=== PATIENT | female | born 1970 | race Caucasian/White ===

== ENCOUNTER 2018-01-21 06:59 | Day surgery (SDC) | payer OTHER, MEDICAID, SELFPAY ==
[2018-01-19 13:46] LABS: Hematocrit 41.1 % (37-47); Hemoglobin 13.6 g/dl (12.0-15.0); Mean Corp Hgb Conc 33.1 g/gl (32-36); Mean Corpuscular Hgb 28.6 pg (27.0-32.0); Mean Corpuscular Volume 86.5 fL (81-99); Platelet Count 458 K/mm3 (150-450); RBC Distribution Width CV 13.9 % (11.6-14.6); RBC Distribution Width SD 43.6 fl (35.1-43.9); Red Blood Count 4.75 M/mm3 (4.2-5.4); White Blood Count 9.6 K/mm3 (4.4-11.0)
[2018-01-19 13:48] LABS: Scan Indicated on CBC? Y/N NO
[2018-01-19 14:03] LABS: Anion Gap 8 (5-15); BUN 11 mg/dL (7-18); BUN/Creat Ratio 21.4 RATIO (10-20); Calcium,Total 8.4 mg/dL (8.5-10.1); Chloride 106 mmol/L (98-107); Creatinine, Serum 0.52 mg/dL (0.55-1.02); EST Glomerular Filtration Rate 136 mL/min (>60); Est Glom Filt Rate - Afr Amer 165 mL/min (>60); Glucose 76 mg/dL (74-106); Sodium Level 141 mmol/L (136-145)
[2018-01-21] VITALS (7 sets, daily range): BP systolic 127–143; BP diastolic 70–99; PULSE 53–83; RESP 14–16; TEMP 36.3–36.5; O2SAT 99–100; BMI 26.8
[2018-01-21 07:25] LABS: Internal QC Validated? YES +Cl - CLEAR BKGD; Pregnancy, Urine Negative Negative
--- NOTE | 2018-01-21 09:22 | PCM.OPRPT ---
Report of Operation Date of Procedure: 01/21/18 Pre-Operative Diagnosis: Stress urinary incontinence Post-Operative Diagnosis: Same digestion operator: Kelvin ms3 Type of Anesthesia:: General Anesthesiologist: [place] Special Medications: None Specimen's removed: None Drains: Moreno Estimated Blood Loss (mL): 30 cc Fluids Replaced: 800 cc of LR Description of Procedure: Patient was taken to the operating room where she is prepped and draped in dorsal lithotomy position. A weighted speculum was placed in the vagina. Moreno catheter was placed and the balloon was inflated. The mid-urethra was identified and the vaginal epithelium under it was grasped with Elzbieta clamps and the vaginal epithelium was infiltrated with 1% Xylocaine with dilute epinephrine solution. An incision was made under the mid urethra and dissected laterally under the pubic ramus on both sides. The midline at the symphysis pubis was marked and then 2 cm on each side was marked with a marking pen. I hydrodissected behind the symphysis with a solution of 20 cc of 1% Xylocaine with epinephrine in 100 cc of injectable saline. 30 cc was used on both sides of the midline and the retropubic space. A catheter guide covered with a Moreno was used to displace the bladder to the patient's left side and the right trocar was placed with the TVT trocar. This was walked up behind the symphysis aiming towards the ipsilateral shoulder until I exited in the skin 2 cm to left of the midline directly cephalad to the pubic ramus. The bladder was taken to the opposite side and the left trocar was advanced in a similar fashion behind the symphysis pubis and out through the skin where it had been marked with a marker. A cystoscopy was then performed at this time. The bladder was intact. There were no perforations. Both ureteral jets were noted. Cystoscopy was ended and the Moreno placed to straight drain. The sling was secured up against the mid urethra using the Metzenbaum scissors as a spacer so as not to impinge upon the urethra. Mesh was lying flat against the mid urethra and no buttonholing of the vagina in either vaginal fornix was noted.The excess mesh was trimmed at the suprapubic incisions and those incisions were closed with skin glue. The vaginal epithelium overlying the mesh was reapproximated with 2-0 Vicryl suture. Second indicating layer of the same suture was used. Vagina was packed with iodoform gauze after a vaginal sweep was completed by me. The entire procedure present was performed by me with assistance. Needle counts were correct and the patient was taken to the recovery room with her Moreno catheter in place. Grafts/Implants Used: TVT exact - Complications None - Admit VTE Documentation VTE Present on Admission: No VTE Mechan Device Prophylaxis: SCD's VTE Pharm Prophylaxis ordered?: No Reason prophylaxis not ordered:: Procedure Not Indicated
--- NOTE | 2018-01-21 09:29 | PCM.DC.D&C ---
Discharge Diet: No Restrictions Discharge Activity: Return to Normal Activity, May Shower, - - No tub baths for 4 weeks. No swimming or hot tubs for 6 weeks May shower in (days): 1 May resume sexual activity in: 6 weeks Weight Bearing Status: Weight bearing as tolerated Call your doctor if your incision/area has: Continuous Slow Oozing, Sudden Increased Bleeding, Foul Smelling Discharge Call your doctor if you observe: Fever of 101 or Higher, Inability to urinate, Using more than one pad per hour, Uncontrolled pain Cleanse incision/area with: Soap & Water, - - Your incsions have skin glue and it can get wet, please leave it on until it falls off or for 14 days. Additional Instructions: Empty her bladder every 2 hours while awake. Finish your macrobid antibiotic as prescribed. Start the first dose on January 22, 2018. No lifting > 15 lbs x 6 weeks Allergies/Adverse Reactions: Allergies No Known Allergies Allergy (Verified 01/14/18 14:06) Medications to take at Discharge Dextroamphetamine Sulfate [Dexedrine] 15 mg PO DAILY 04/25/13 Furosemide [Lasix] 20 mg PO DAILY 04/25/13 Propranolol HCl [Inderal (Beta Edgard)] 40 mg PO DAILY 04/25/13 Tizanidine HCl [Zanaflex] 4 mg PO Q8H PRN 04/25/13 Epinephrine [Epi Pen] 0.3 mg IM X1 #1 syringe 05/27/14 Albuterol Inhaler [Ventolin Hfa] 1 - 2 puff INHALATION Q4H PRN PRN 01/14/18 Fluticasone 0.05% [Flonase Nasal [place]] 1 spray NASAL DAILY PRN 01/14/18 Lisinopril/Hydrochlorothiazide [Zestoretic 20/12.5 Tablet] 1 tablet PO DAILY 01/14/18 Meloxicam [Mobic] 7.5 mg PO DAILY 01/14/18 Primary Care Physician: Eduardo Norton DO [Primary Care Provider] - Test Results: Test results from this visit will be discussed in further detail at your follow-up appointment, if applicable. Please Follow Up With: Stacy Freedman MD - [phone] When: 1 week or as needed
--- NOTE | 2018-01-21 09:32 | DCINST_ITS ---
Discharge Diet: No Restrictions Discharge Activity: Return to Normal Activity, May Shower, - - No tub baths for 4 weeks. No swimming or hot tubs for 6 weeks May shower in (days): 1 May resume sexual activity in: 6 weeks Weight Bearing Status: Weight bearing as tolerated Call your doctor if your incision/area has: Continuous Slow Oozing, Sudden Increased Bleeding, Foul Smelling Discharge Call your doctor if you observe: Fever of 101 or Higher, Inability to urinate, Using more than one pad per hour, Uncontrolled pain Cleanse incision/area with: Soap & Water, - - Your incsions have skin glue and it can get wet, please leave it on until it falls off or for 14 days. Additional Instructions: Empty her bladder every 2 hours while awake. Finish your macrobid antibiotic as prescribed. Start the first dose on January 22, 2018. No lifting > 15 lbs x 6 weeks Allergies/Adverse Reactions: Allergies No Known Allergies Allergy (Verified 01/14/18 14:06) Medications to take at Discharge Dextroamphetamine Sulfate [Dexedrine] 15 mg PO DAILY 04/25/13 Furosemide [Lasix] 20 mg PO DAILY 04/25/13 Propranolol HCl [Inderal (Beta Edgard)] 40 mg PO DAILY 04/25/13 Tizanidine HCl [Zanaflex] 4 mg PO Q8H PRN 04/25/13 Epinephrine [Epi Pen] 0.3 mg IM X1 #1 syringe 05/27/14 Albuterol Inhaler [Ventolin Hfa] 1 - 2 puff INHALATION Q4H PRN PRN 01/14/18 Fluticasone 0.05% [Flonase Nasal [place]] 1 spray NASAL DAILY PRN 01/14/18 Lisinopril/Hydrochlorothiazide [Zestoretic 20/12.5 Tablet] 1 tablet PO DAILY Meloxicam [Mobic] 7.5 mg PO DAILY 01/14/18 Primary Care Physician: Eduardo Norton DO [Primary Care Provider] - Test Results: Test results from this visit will be discussed in further detail at your follow- up appointment, if applicable. Please Follow Up With: Stacy Freedman MD - [phone] When: 1 week or as needed
--- NOTE | 2018-01-21 11:37 | SUR.PHASEII ---
at 1115 pt's bladder was filled with 200cc sterile saline per orders. pt verbalizes bladder felt full. pt requested up to BR. Pt voided 300cc clear urine. back to room. bladder scanned for 74cc PVR.
== END 2018-01-21 11:40 | disposition home or self-care (01) ==
LOC: SDC 07:02 → AC 07:03
PROVIDERS: Anesthesiology; Family Provider Student in an Organized Health Care Education/Training Program; PCP Student in an Organized Health Care Education/Training Program; Visit Provider Obstetrics & Gynecology
PROC: 0TJB8ZZ Inspection of Bladder, Via Natural or Artificial Opening Endoscopic (ICD-10-PCS; CPT 57288; principal; 2018-01-21 08:10)
DX: N39.3 Stress incontinence (female) (male) (principal); J45.909 Unspecified asthma, uncomplicated; F98.8 Other specified behavioral and emotional disorders with onset usually occurring in childhood and adolescence; Q60.0 Renal agenesis, unilateral; I10 Essential (primary) hypertension; Z79.51 Long term (current) use of inhaled steroids; Z79.899 Other long term (current) drug therapy
CPT/HCPCS: 51992; 36415; 80048; 81025; 85027; J7120; J2405

== ENCOUNTER 2018-12-03 18:39 | Emergency (ER) | payer OTHER, SELFPAY ==
[2018-12-03 18:40] VITALS: BP 170/129; PULSE 89; RESP 16; TEMP 36.3; O2SAT 98; BMI 24.0
[2018-12-03 19:27] VITALS: BP 205/127
--- NOTE | 2018-12-03 19:57 | CT_ITS ---
STUDY: CT CERVICAL SPINE WITHOUT CONTRAST REASON FOR EXAM: Female, 48 years old. RADIATION DOSAGE (If Supplied By Facility): CTDIvol = ( 11.30 ) mGy, DLP = ( 228.11 ) mGycm TECHNIQUE: High resolution transaxial imaging was performed without contrast material. Sagittal and coronal images were reconstructed. Individualized dose optimization techniques were used for this CT. COMPARISON: None FINDINGS: Normal craniovertebral junction. Normal anterior atlantoaxial articulation. Normal odontoid process. Normal cervical lordosis. Normal vertebral bodies and posterior osseous elements. C2-3: Normal endplates. Normal disc height and morphology. Normal central canal and intervertebral neuroforamina. C3-4: Normal endplates. Normal disc height and morphology. Normal central canal and intervertebral neuroforamina. C4-5: Normal endplates. Mild disc space narrowing. 1 to 2 mm anterolisthesis. Mild left foraminal stenosis due to facet hypertrophy. C5-6: Normal endplates. Marked disc space narrowing. 2 mm retrolisthesis. Noncompressive spondylotic bar. Foraminal stenosis is moderate on the right and severe on the left due to uncinate and left facet hypertrophy. C6-7: Normal endplates. Normal disc height and morphology. Normal central canal and intervertebral neuroforamina. C7-T1: Normal endplates. Normal disc height and morphology. Normal central canal and intervertebral neuroforamina. Normal visualized soft tissue structures. CT/Spine Cervical without Contras IMPRESSION: 1. No evidence of cervical trauma. 2. Mild degenerative changes of the cervical spine, detailed above. Electronically Signed: Elizabeth Oneil MD at 20:47 EDT Tel , Service support ,
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
[2018-12-03] MEDS: Ketorolac 60 MG/2 ML Vial IM (21:25)
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
== END 2018-12-03 22:22 | disposition home or self-care (01) ==
PROVIDERS: Emergency Provider Emergency Medicine; Family Provider Student in an Organized Health Care Education/Training Program; PCP Student in an Organized Health Care Education/Training Program
DX: S16.1XXA Strain of muscle, fascia and tendon at neck level, initial encounter (principal); I10 Essential (primary) hypertension; F90.9 Attention-deficit hyperactivity disorder, unspecified type; Z79.899 Other long term (current) drug therapy; V43.52XA Car driver injured in collision with other type car in traffic accident, initial encounter; Y93.I9 Activity, other involving external motion; Y92.410 Unspecified street and highway as the place of occurrence of the external cause; Y99.8 Other external cause status
CPT/HCPCS: 70450; 72125; 96372; 99282

== ENCOUNTER 2019-07-06 13:00 | Outpatient (RCR) | payer OTHER, SELFPAY ==
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
== END 2019-07-06 19:00 | disposition home or self-care (01) ==
LOC: PT 13:00
PROVIDERS: Family Provider Student in an Organized Health Care Education/Training Program; PCP Student in an Organized Health Care Education/Training Program; Referring Provider Student in an Organized Health Care Education/Training Program; Visit Provider Student in an Organized Health Care Education/Training Program
DX: M54.2 Cervicalgia (principal); V89.2XXA Person injured in unspecified motor-vehicle accident, traffic, initial encounter
CPT/HCPCS: 97014; 97035; 97110; 97140; 97161; G0283

== ENCOUNTER 2020-01-25 17:00 | Outpatient (RCR) | payer OTHER, SELFPAY ==
--- NOTE | 2020-01-12 08:49 | HP.PTREVAL ---
Dr. Eduardo Norton, DO, It has been my pleasure to treat DONIS CABRAL over the last 14 visits for neck pain. Please see the progress note below for an update on the physical therapy plan of care! Subjective: Pt. reports I am doing okay, stiff just really stiff. Pt. reports being HEP compliant. I really am trying to focus on my posture. Pt. again arrives with FH posture with very flexed at lower cervical spine. Difficult for patient to correct. I am just really sore and stiff. Objective/Function: Pt. reports overall decreased symptoms with PT this date. She still is methodical with her cervical movement. She is to add in SNAGs to HEP. I would also like her to start being more active. I did suggest a gym, but she reports being hesitent due to covid pandemic. I also recommended band exercises at home to replicate. Pt. did consent to this. Pt. is slowly progressing with PT. She did take a few months off with work issues. Pt. reports she was doing well, but recently has had an increase in pain an stiffness and thought it would be good to start again. She reported that she thought she was good and could manage independently. I trialed mechanical traction with her today. Pt. is progressing, but still is limited with her cervical ROM and is very methodical with cervical rotation (R worse than L). Pt. is stiff into extension as well. I continue to reinforce posture and body mechanics, but she is veyr guarded with all cervical movements and positioning. Plan Plan: I am extending her POC 1-2x per week with focus on cervical ROM, on decreasing tissue tension of cervical/scapulea, and postural controll/body mechanics. Goals Goal 1:: LTG: Pt. to be I with HEP. Goal Time Frame: 4-6 Weeks Goal Progress: Progressing Goal 2:: LTG: Pt. to have increased cervical ROM increased by 25% in all directional without increase in symptoms. Goal Time Frame: 4-6 Weeks Goal Progress: Progressing Goal 3:: LTG: Pt. to demonstrate improved posture throughout therapy session, predominantly throughout her cervical and thoracic spine. Goal Time Frame: 4-6 Weeks Goal Progress: Progressing Goal 4:: LTG: pt. to complete all work duties without increase in symptoms. Goal Time Frame: 4-6 Weeks Goal Progress: Progressing Goal 5:: LTG: pt. to sleep throughout the night without increase in symptoms. Goal Time Frame: 4-6 Weeks Goal Progress: Progressing Anticipated Interventions Patient/Client Instruction: Educate patient on: Condition, Plan of Care, Risk Factors, Benefits of Fitness Program For the Purpose of:: To improve decision making, To facilitate caregiver knowledge, To improve self management, To prevent re-injury, To improve ability to perform tasks related to life management, To improve tolerance to ADL's Therapeutic Exercise to Include: Strength training, Power training, Endurance training, Postural training, Flexibilty training, Passive ROM, Active ROM, Rohit Exercises, Scapular Strength/Stabilization For the Purpose of:: To decrease pain, To decrease swelling/inflammation, To increase ROM, To improve nutrient delivery to tissue, To increase oxygenation perfusion, To improve muscle performance and motor function, To improve health of tissue, To decrease soft tissue restriction, To increase flexibility/ROM Manual Therapy Techniques to Include: Mobilization, Manipulation, Passive ROM, Functional dry needling, Soft tissue mobilization For the Purpose of:: To decrease pain, To decrease swelling/inflammation, To increase ROM, To improve nutrient delivery to tissue, To increase oxygenation perfusion, To improve muscle performance and motor function, To improve ability to perform ADL's, To increase tolerance to activity/condition/position, To decrease soft tissue restriction, To increase flexibility/ROM IF ES: Yes Ultrasound (thermal/non thermal): Yes Intermittent cervical traction: Yes For the Purpose of:: To decrease pain, To decrease swelling/inflammation, To increase ROM, To improve nutrient delivery to tissue, To increase oxygenation perfusion, To improve muscle performance and motor function, To improve ability to perform ADL's Please do not hesitate to contact me at [phone] by phone or if you have questions or concerns regarding this new plan of care! Sincerely, Jayden Low DPT
--- NOTE | 2020-01-12 12:16 | HP.PTREVAL_ITS ---
Dr. Eduardo Norton, DO, It has been my pleasure to treat DONIS CABRAL over the last 19 visits for neck pain. Please see the progress note below for an update on the physical therapy plan of care! Subjective: Pt. reprots I am doing better today, I think the dry needling helps. Pt. repoits beign HEP compliant. She has also started going back to gym and doing some exercises. Ptill reports stiffness, but is improving with tolerance to all work and gym exercises. Pt. still has end range stiffness with R cervical rotation. Objective/Function: Pt. reports increased ROM of cervical spine post PT. pt. educated to continue with strenthening and rotaton mobs wtih towel at home. pt. consents. I again re inforce the need to focus on increased cervical retraction and to reduce gaurding posture. Pt. consents. Pt. reports being 75% better overall. She reports overall reduced stiffness, but still has painwith rotation to the R, most of her symptoms are at levator scap/mid trap region. She is having benefit from DN, stretching and postural strengthening. I would like her to continue to be more consistent at home and focus on posture at home/work. Again patient consents. Plan Plan: Pt. is progressing, but slowly. Pt. still needs to work on posture control. Pt. is progressing with strengthening, but slowly. Cont with POC with progressing back to gym exercises and end range of cervical motions. Goals Goal 1:: LTG: Pt. to be I with HEP. Goal Time Frame: 4-6 Weeks Goal Progress: Progressing Goal 2:: LTG: Pt. to have increased cervical ROM increased by 25% in all directional without increase in symptoms. (new goal 12/02/19: Pt. to have full cervical extension and R rotation without increase in symptoms). Goal Time Frame: 4-6 Weeks Goal Progress: Goal Met Goal 3:: LTG: Pt. to demonstrate improved posture throughout therapy session, predominantly throughout her cervical and thoracic spine. Goal Time Frame: 4-6 Weeks Goal Progress: Progressing Goal 4:: LTG: pt. to complete all work duties without increase in symptoms. Goal Time Frame: 4-6 Weeks Goal Progress: Progressing Goal 5:: LTG: pt. to sleep throughout the night without increase in symptoms. Goal Time Frame: 4-6 Weeks Goal Progress: Goal Met Anticipated Interventions Patient/Client Instruction: Educate patient on: Condition, Plan of Care, Risk Factors, Benefits of Fitness Program For the Purpose of:: To improve decision making, To facilitate caregiver knowledge, To improve self management, To prevent re-injury, To improve ability to perform tasks related to life management, To improve tolerance to ADL's Therapeutic Exercise to Include: Strength training, Power training, Endurance training, Postural training, Flexibilty training, Passive ROM, Active ROM, Rohit Exercises, Scapular Strength/Stabilization For the Purpose of:: To decrease pain, To decrease swelling/inflammation, To increase ROM, To improve nutrient delivery to tissue, To increase oxygenation perfusion, To improve muscle performance and motor function, To improve health of tissue, To decrease soft tissue restriction, To increase flexibility/ROM Manual Therapy Techniques to Include: Mobilization, Manipulation, Passive ROM, Functional dry needling, Soft tissue mobilization For the Purpose of:: To decrease pain, To decrease swelling/inflammation, To increase ROM, To improve nutrient delivery to tissue, To increase oxygenation perfusion, To improve muscle performance and motor function, To improve ability to perform ADL's, To increase tolerance to activity/condition/position, To dec rease soft tissue restriction, To increase flexibility/ROM IF ES: Yes Ultrasound (thermal/non thermal): Yes Intermittent cervical traction: Yes For the Purpose of:: To decrease pain, To decrease swelling/inflammation, To increase ROM, To improve nutrient delivery to tissue, To increase oxygenation p erfusion, To improve muscle performance and motor function, To improve ability to perform ADL's Please do not hesitate to contact me at [phone] by phone or if you have questions or concerns regarding this new plan of care! Sincerely, CORDELL ContrerasT
== END 2020-01-25 19:00 | disposition home or self-care (01) ==
LOC: PT 17:00
PROVIDERS: PCP Student in an Organized Health Care Education/Training Program; Referring Provider Student in an Organized Health Care Education/Training Program; Visit Provider Student in an Organized Health Care Education/Training Program
DX: M54.2 Cervicalgia (principal); V89.2XXD Person injured in unspecified motor-vehicle accident, traffic, subsequent encounter
CPT/HCPCS: 97012; 97110; 97140

== ENCOUNTER 2020-05-16 13:00 | Outpatient (RCR) | payer OTHER, SELFPAY ==
--- NOTE | 2020-05-17 08:28 | HP.PTREVAL_ITS ---
Dr. Eduardo Norton, DO, It has been my pleasure to treat DONIS CABRAL over the last 1 visits for Neck pain, stiffness. Please see the progress note below for an update on the physical therapy plan of care! Subjective: #V number switched today. Pt. reprots overall doing well. She is back to working out in gym with minimal issues. Pt. reprots being compliant with ROM of neck at home and is workin on postural strengthening. Pt. repots being 80% better overall. SHe denies NT in iether side. Objective/Function: Pt. tolerated PT well without adverse reaction. Pt. has improved her cervical rotation dramitically to ~75deg/ea. direction. she still tends to keeep her neck in slight FH posture, but has improved and is able to correct with VCing. Pt. is less gaurded with her neck mobility as well. Pt. has good cervical iso strength 5/5 throughout and 5/5 B shoulder strengthen. Pt. is to continue with strengthening at local gym for both postural strnegtheniing and UE strengthening. Pt. consents. Plan Plan: Pt. to trial exercises for 2 weeks to determin if she can continue on her own. If not to follow back up with PT as needed. Goals Goal 1:: LTG: Pt. to be I with HEP for UE strengthening and postural control. Goal Time Frame: 4-6 Weeks Goal Progress: Goal Met Goal 2:: STG: Pt. to have atleast 80deg of cervical rotation bilaterally with decreased guarded movements and 0-2/10 pain Goal Time Frame: 2-4 Weeks Goal Progress: Progressing Goal 3:: STG: Pt. to sleep throughout the night without increase in syptoms. Goal Time Frame: 2-4 Weeks Goal Progress: Progressing Goal 4:: LTG: Pt. to demonstrate improved posture of her cervical spine throughout therapy session indicating increased postural awareness. Goal Time Frame: 4-6 Weeks Goal Progress: Progressing Goal 5:: LTG: Pt. to complete all work related activities without increase in cervical spine pain. Goal Time Frame: 4-6 Weeks Goal Progress: Progressing Anticipated Interventions Patient/Client Instruction: Educate patient on: Condition, Plan of Care, Risk Factors, Benefits of Fitness Program For the Purpose of:: To foster healthy habits, To improve decision making, To facilitate caregiver knowledge, To improve self management, To prevent re- injury, To improve ability to perform tasks related to life management, To improve tolerance to ADL's Therapeutic Exercise to Include: Strength training, Body mechanics, Postural training, Flexibilty training, Passive ROM, Active ROM, Rohit Exercises, Scapular Strength/Stabilization For the Purpose of:: To decrease pain, To decrease swelling/inflammation, To increase ROM, To improve nutrient delivery to tissue, To increase oxygenation perfusion, To improve muscle performance and motor function, To improve ability to perform ADL's, To improve health of tissue, To decrease soft tissue restriction, To increase flexibility/ROM, To improve endurance Manual Therapy Techniques to Include: Mobilization, Passive ROM, Functional dry needling, Soft tissue mobilization For the Purpose of:: To decrease pain, To decrease swelling/inflammation, To increase ROM, To improve nutrient delivery to tissue, To increase oxygenation perfusion, To improve muscle performance and motor function, To improve ability to perform ADL's Please do not hesitate to contact me at [phone] by phone or if you have questions or concerns regarding this new plan of care! Sincerely, Jayden Low DPT
--- NOTE | 2020-05-17 11:25 | HP.PTREVAL_ITS ---
Dr. Eduardo Norton, DO, It has been my pleasure to treat DONIS CABRAL over the last 5 visits for Neck pain, stiffness. Please see the progress note below for an update on the physical therapy plan of care! Subjective: Pt. reports I am doing really well right now. I think I am about 90% better. I still get some soreness, but not bad at all. Objective/Function: Pt. reports being 90% better overall. She is to follow up with physician next week. She has ~80deg of B cervical rotation, with improved cervical posture in sitting/standing. She is also overall sleep well without c/o increased symptoms. Pt. pleased with progression. Pt. has good overall UB strength 5/5 throughout. She is still slightly gaurded with her movements, but much more freely moving today. Plan Plan: Pt. to follow up with physician next week. and possibly DC from PT at this point in time. Goals Goal 1:: LTG: Pt. to be I with HEP for UE strengthening and postural control. Goal Time Frame: 4-6 Weeks Goal Progress: Goal Met Goal 2:: STG: Pt. to have atleast 80deg of cervical rotation bilaterally with decreased guarded movements and 0-2/10 pain Goal Time Frame: 2-4 Weeks Goal Progress: Goal Met Goal 3:: STG: Pt. to sleep throughout the night without increase in syptoms. Goal Time Frame: 2-4 Weeks Goal Progress: Goal Met Goal 4:: LTG: Pt. to demonstrate improved posture of her cervical spine throughout therapy session indicating increased postural awareness. Goal Time Frame: 4-6 Weeks Goal Progress: Goal Met Goal 5:: LTG: Pt. to complete all work related activities without increase in cervical spine pain. Goal Time Frame: 4-6 Weeks Goal Progress: Goal Met Anticipated Interventions Patient/Client Instruction: Educate patient on: Condition, Plan of Care, Risk Factors, Benefits of Fitness Program For the Purpose of:: To foster healthy habits, To improve decision making, To facilitate caregiver knowledge, To improve self management, To prevent re- injury, To improve ability to perform tasks related to life management, To improve tolerance to ADL's Therapeutic Exercise to Include: Strength training, Body mechanics, Postural training, Flexibilty training, Passive ROM, Active ROM, Rohit Exercises, Scapular Strength/Stabilization For the Purpose of:: To decrease pain, To decrease swelling/inflammation, To increase ROM, To improve nutrient delivery to tissue, To increase oxygenation perfusion, To improve muscle performance and motor function, To improve ability to perform ADL's, To improve health of tissue, To decrease soft tissue restriction, To increase flexibility/ROM, To improve endurance Manual Therapy Techniques to Include: Mobilization, Passive ROM, Functional dry needling, Soft tissue mobilization For the Purpose of:: To decrease pain, To decrease swelling/inflammation, To increase ROM, To improve nutrient delivery to tissue, To increase oxygenation perfusion, To improve muscle performance and motor function, To improve ability to perform ADL's Please do not hesitate to contact me at [phone] by phone or if you have questions or concerns regarding this new plan of care! Sincerely, Jayden Low DPT
--- NOTE | 2020-05-17 11:39 | HP.PTDCSUM ---
It has been my pleasure to treat DONIS CABRAL referred by Dr. Eduardo Norton DO, with the diagnosis of Neck pain, stiffness for a total of 6 visit(s). Discharge Date: 05/16/20 Please see the following information for a summary of their discharge status. Subjective: Pt. arrives today and reports she did not see her physician due to schedule conflict. Pt. reports overall doing well. Pt. is having some low back pain that is radiating down her leg a bit. Started about a week ago after possibly sleeping awkwardly in her chair. R side of neck Pain Intensity (Out of 10): 0 R UT Pain Intensity (Out of 10): 0 Lumbar spine Pain Intensity (Out of 10): 3 % Improvement: 90 Objective/Function: Pt. is overall doing well. Her neck is significantly better, but today is having some more low back pain. Pt. appears to have a lumbar derrangement, pt. to work on extension progression for this. Pt. will be DC from PT for her neck and follow up with physician this week. Goal 1:: LTG: Pt. to be I with HEP for UE strengthening and postural control. Goal Progress: Goal Met Goal 2:: STG: Pt. to have atleast 80deg of cervical rotation bilaterally with decreased guarded movements and 0-2/10 pain Goal Progress: Goal Met Goal 3:: STG: Pt. to sleep throughout the night without increase in syptoms. Goal Progress: Goal Met Goal 4:: LTG: Pt. to demonstrate improved posture of her cervical spine throughout therapy session indicating increased postural awareness. Goal Progress: Goal Met Goal 5:: LTG: Pt. to complete all work related activities without increase in cervical spine pain. Goal Progress: Goal Met Plan: DC from PT at this point in time. Discharge Comments: Pt. was seen for her neck pain. Pt. had a lot of difficulty with her ROM and postural control. She is doing much better now with both ROM and posture of cervical spine. She has been active in a gym for strengthening and overall reports being 90% better. Pt. will be DC from PT at this point in time. If there are questions or concerns regarding this patient's physical therapy, please feel free to call me at [phone]. Thank you for the referral of this patient. Sincerely, CORDELL ContrerasT
== END 2020-05-16 19:00 | disposition home or self-care (01) ==
LOC: PT 13:00
PROVIDERS: PCP Student in an Organized Health Care Education/Training Program; Referring Provider Student in an Organized Health Care Education/Training Program; Visit Provider Student in an Organized Health Care Education/Training Program
DX: M54.2 Cervicalgia (principal); V89.2XXD Person injured in unspecified motor-vehicle accident, traffic, subsequent encounter
CPT/HCPCS: 97110; 97140; 97164